=== PATIENT | female | born 1960 | race Two or more races ===

== ENCOUNTER 2016-10-12 12:27 | Emergency (ER) | payer OTHER ==
[2016-10-12 12:40] VITALS: TEMP 97.5
[2016-10-12 13:08] LABS: % IMMATURE GRANULYOCYTES 0.1 % (0.0-1.1); ABSOLUTE IMMATURE GRANULOCYTES 0.01 10^3/uL (0.00-0.10); ADD DIFF? NO; ADD MORPH? NO; ADD SCAN? NO; ATYPICAL LYMPHOCYTE FLAG 10 (0-99); FRAGMENT RBC FLAG 0 (0-99); HEMATOCRIT 42.3 % (38.0-47.0); HEMOGLOBIN 14.5 g/dL (12.6-16.3); LEFT SHIFT FLG 0 (0-99); LIPEMIA HEMOLYSIS FLAG 90 (0-99); MEAN CELL HEMOGLOBIN 31.7 pg (27.9-34.1); MEAN CELL HEMOGLOBIN CONCENTR. 34.3 g/dL (32.4-36.7); MEAN CELL VOLUME 92.6 fL (81.5-99.8); MEAN PLATELET VOLUME 10.1 fL (8.7-11.7); PLATELET CLUMPS FLAG 0 (0-99); PLATELET COUNT 220 10^3/uL (150-400); RED BLOOD CELL COUNT 4.57 10^6/uL (4.18-5.33); RED CELL DISTRIBUTION WIDTH 11.8 % (11.5-15.2)
--- NOTE | 2016-10-12 13:13 | CPEKG ---
Heart Rate: 67 RR Interval: 896 P-R Interval: 152 QRSD Interval: 76 QT Interval: 440 QTC Interval: 465 P [place]: 53 QRS [place]: 58 T Wave [place]: 54 EKG Severity - NORMAL ECG - EKG Impression: SINUS RHYTHM Electronically Signed By: Sachin Day 13-Oct-2016 09:12:18
[2016-10-12 13:21] LABS: ALANINE AMINOTRANSFERASE 32 IU/L (9-52); ALBUMIN 4.4 g/dL (3.5-5.0); ALKALINE PHOSPHATASE 98 IU/L (38-126); ANION GAP 15 mEq/L (8-16); ASPARTATE AMINOTRANSFERASE 28 IU/L (14-46); BILIRUBIN,TOTAL 1.3 mg/dL (0.1-1.4); CALCIUM 9.3 mg/dL (8.5-10.4); CARBON DIOXIDE 24 mEq/l (22-31); CHLORIDE 104 mEq/L (97-110); CREATININE 0.7 mg/dL (0.6-1.0); GLOMERULAR FILTRATION RATE > 60; GLUCOSE 81 mg/dL (70-100); POTASSIUM 3.4 mEq/L (3.5-5.2); SODIUM 143 mEq/L (134-144); TOTAL PROTEIN 7.1 g/dL (6.3-8.2)
[2016-10-12 14:06] VITALS: BP 98/62; PULSE 73; RESP 24; O2SAT 95
--- NOTE | 2016-10-12 14:11 | EDPHY ---
HPI/HX/ROS/PE/MDM Narrative: Chief complaint: Hypoglycemia HPI: 56-year-old woman with a history of rheumatic disease, on Humira, last dose was 3 days ago, she is on it every 2 weeks. She has has episodes of hypoglycemia for the 3-4 days after she is dosed. Today she had an episode of hypoglycemia and became unresponsive. She states she thinks this happened because she was not on top of checking her sugars this morning. For the last several doses she has noted that her blood sugars go low after the Humira. Her android software engineer believes this is secondary to decreasing insulin resistance on receptor cells. 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 Normally she monitors these very closely but today was in hurry. She states her blood sugar drops precipitously rapidly. Normally she takes all clots 15 g of glucose in retirement form which prevents lows but this was not available today. Did not fall. Did not hit her head. Now complaining some mild nausea which has since resolved. No other recent illness. No fevers or chills. Is not and any other hyperglycemic agents. ROS: 10 point Review of Systems is negative except as noted in the HPI. Physical exam: Gen: Awake, Alert, No Distress HEENT: Nose: no rhinorrhea Eyes: PERRLA, EOMI Mouth: Moist mucosa Neck: Supple, no JVD Chest: nontender, lungs clear to auscultation Heart: S1, S2 normal, no murmur Abd: Soft, non-tender, no guarding Back: no CVA tenderness, no midline tenderness Ext: no edema, non-tender Skin: no rash Neuro: CN II-XII intact, Sensation grossly intact, Strength 5/5 in bilateral upper and lower extremities ED Course: 56-year-old woman with episodes of hypoglycemia at secondary to her Humira infusions. She is very well educated diabetes is actually a inclusion special educator is knows how to treat these. She is not have a good sense of when she is going to go low and she dropped precipitously fast. Normally she is able to treat these with unfortunately she was unable to do so today. Given her precipitous drop in her blood sugar I feel glucagon kit would be appropriate for her in the event that she becomes unresponsive secondary to hypoglycemia again. She is very well very well educated regarding hyperglycemic management and otherwise will continue to monitor her sugars closely. She has gotten better home. She will continue eat complex carbohydrates and car blood. She will return for any concerns. Otherwise follow up with her android software engineer. - Data Points Laboratory Results: Laboratory Results 10/12/16 12:41 10/12/16 12:41 10/12/16 10/12/16 12:41 12:36 WBC 9.12 10^3/uL (3.80-9.50) RBC 4.57 10^6/uL (4.18-5.33) Hgb 14.5 g/dL (12.6-16.3) POC Hgb 13.6 gm/dL (12.3-15.9) Hct 42.3 % (38.0-47.0) POC Hct 40 % (35.5-47.5) MCV 92.6 fL (81.5-99.8) MCH 31.7 pg (27.9-34.1) MCHC 34.3 g/dL (32.4-36.7) RDW 11.8 % (11.5-15.2) Plt Count 220 10^3/uL (150-400) MPV 10.1 fL (8.7-11.7) Neut % (Auto) 53.5 % (39.3-74.2) Lymph % (Auto) 37.4 % (15.0-45.0) [place] % (Auto) 5.8 % (4.5-13.0) Eos % (Auto) 2.7 % (0.6-7.6) Baso % (Auto) 0.5 % (0.3-1.7) Nucleat RBC Rel Count 0.0 % (0.0-0.2) Absolute Neuts (auto) 4.87 10^3/uL (1.70-6.50) Absolute Lymphs (auto) 3.41 H 10^3/uL (1.00-3.00) Absolute Monos (auto) 0.53 10^3/uL (0.30-0.80) Absolute Eos (auto) 0.25 10^3/uL (0.03-0.40) Absolute Basos (auto) 0.05 10^3/uL (0.02-0.10) Absolute Nucleated RBC 0.00 10^3/uL (0-0.01) Immature Gran % 0.1 % (0.0-1.1) Immature Gran # 0.01 10^3/uL (0.00-0.10) POC Sodium 145 H mEq/L (134-144) Sodium 143 mEq/L (134-144) POC Potassium 3.0 L mEq/L (3.3-5.0) Potassium 3.4 L mEq/L (3.5-5.2) POC Chloride 107 mEq/L (96-108) Chloride 104 mEq/L (97-110) Carbon Dioxide 24 mEq/l (22-31) Anion Gap 15 mEq/L (8-16) POC BUN 11 mg/dL (7-23) BUN 13 mg/dL (7-23) Creatinine 0.7 mg/dL (0.6-1.0) POC Creatinine 0.5 L mg/dL (0.6-1.2) Estimated GFR > 60 Glucose 81 mg/dL (70-100) POC Glucose 85 mg/dL (70-100) Calcium 9.3 mg/dL (8.5-10.4) Total Bilirubin 1.3 mg/dL (0.1-1.4) AST 28 IU/L (14-46) ALT 32 IU/L (9-52) Alkaline Phosphatase 98 IU/L (38-126) Total Protein 7.1 g/dL (6.3-8.2) Albumin 4.4 g/dL (3.5-5.0) Point of Care Test Results: 10/12/16 12:36 POC Sodium 145 H POC Potassium 3.0 L POC Chloride 107 POC BUN 11 POC Creatinine 0.5 L POC Glucose 85 General Time Seen by Provider: 10/12/16 13:15 Initial Vital Signs: Initial Vital Signs Temperature (C) 36.4 C 10/12/16 12:36 Heart Rate 107 H 10/12/16 12:36 Respiratory Rate 18 10/12/16 12:36 Blood Pressure 106/76 10/12/16 12:36 O2 Sat (%) 96 10/12/16 12:36 O2 Delivery Mode Room Air Allergies/Adverse Reactions: codeine [Codeine] Allergy (Mild, Verified 12/07/09 07:59) hydromorphone HCl [From Dilaudid] Allergy (Mild, Verified 12/07/09 07:59) morphine [Morphine] Allergy (Mild, Verified 12/07/09 07:59) sulfamethoxazole [From Septra] Allergy (Mild, Verified 12/07/09 07:59) trimethoprim [From Septra] Allergy (Mild, Verified 12/07/09 07:59) Sulfa (Sulfonamide Antibiotics) Allergy (Verified 10/12/16 12:33) tetracycline Allergy (Verified 10/12/16 12:33) Home Medications: Medication Instructions Recorded Albuterol Sulfate 12/07/09 Levothyroxine 12/07/09 Ondansetron Odt [Zofran Odt] 4 mg SL Q4PRN PRN #4 tab 12/07/09 PROzac 12/07/09 Seravent 12/07/09 Ondansetron Odt [Zofran Odt] 1 - 2 tab PO Q6-8PRN PRN #6 tab 02/20/11 Albuterol 10/12/16 FLUoxetine 10/12/16 Glucagon,Human Recombinant 1 mg IJ ONCE PRN #1 kit 10/12/16 [Glucagon Emergency Kit] Humira 10/12/16 LYRICA 10/12/16 VITAMIN D 10/12/16 Departure - Departure Disposition: Home, Routine, Self-Care Clinical Impression: Hypoglycemia Condition: Good Instructions: Non-diabetic Hypoglycemia (ED) Additional Instructions: Follow up with the android software engineer in 1-2 days for re-evaluation. Continue to monitor blood sugars ingests adequate carbohydrates for the next several days. Even provided glucagon kit as needed for further hypoglycemic events. Discussed with your doctor about educating friends and family on its use. Referrals: XIAO RUBY [Primary Care Provider] - As per Instructions Prescriptions: Glucagon,Human Recombinant [Glucagon Emergency Kit] 1 mg IJ ONCE PRN #1 kit PRN Reason: Altered mental status
== END 2016-10-12 14:39 | disposition home or self-care (01) ==
LOC: EDUNIT#
DX: E16.2 Hypoglycemia, unspecified (principal)
CPT/HCPCS: 82947-QW

== ENCOUNTER → 2017-09-09 | Outpatient (CLI) | payer OTHER | LOC: BRMIMAGING 14:30 | PROVIDERS: ATTEND Internal Medicine Rheumatology | DX: Z13.820 Encounter for screening for osteoporosis (principal); M85.89 Other specified disorders of bone density and structure, multiple sites; Z82.62 Family history of osteoporosis; Z91.81 History of falling ==

== ENCOUNTER 2017-10-23 05:09 | Emergency (ER) | payer BC, OTHER ==
[2017-10-23] MEDS ORDERED: TDAP ADULT 0.5 ML INJ (BOOSTRIX) IM ONE (05:19)
[2017-10-23 05:25] VITALS: BP 104/71; PULSE 71; RESP 16; TEMP 98.1; O2SAT 99
--- NOTE | 2017-10-23 05:39 | EDPHY ---
H & P Time Seen by Provider: 10/23/17 05:15 HPI/ROS: Chief complaint: Laceration to left eyebrow HPI: 57-year-old female with psoriatic arthritis. She is bending over to take care of her cat. As she came up it as it was dark she missed the fact that the edge of the door was in the way and she but her head on the eyebrow on the left against the door edge. In so doing she was coming up quite quickly and sustained a laceration. She notes that there was lot of blood coming down the face and even of the nostril however, there was no actual direct blunt injury to the nose itself This happened at home, occurring just [employer] Reports there is no numbness or loss of sensation. 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 There is no neck pain. She did not experience any marked axial loading or hyperextension of the neck. She has no numbness or tingling paresthesias. There is no loss of consciousness. Full recall for the event. No nausea vomiting Physical Exam: Gen: Well-developed. Well-nourished. No odor of alcohol. Nontoxic. Afebrile. Extremity: There is a 1.5 cm, jagged laceration that is full thickness to the left forehead extending into the eyebrow. Mild soft tissue swelling and tenderness but no bony tenderness of the orbit. Function: Sensation over the forehead is intact NV Status: Intact Pupils equal round reactive to light. No visual field defect. No diplopia. Full range of motion Constitutional: Initial Vital Signs Temperature (C) 36.7 C 10/23/17 05:10 Heart Rate 71 10/23/17 05:10 Respiratory Rate 16 10/23/17 05:10 Blood Pressure 104/71 10/23/17 05:10 O2 Sat (%) 99 10/23/17 05:10 O2 Delivery Mode Room Air Allergies/Adverse Reactions: codeine [Codeine] Allergy (Mild, Verified 10/23/17 05:16) hydromorphone HCl [From Dilaudid] Allergy (Mild, Verified 10/23/17 05:16) morphine [Morphine] Allergy (Mild, Verified 10/23/17 05:16) sulfamethoxazole [From Septra] Allergy (Mild, Verified 10/23/17 05:16) trimethoprim [From Septra] Allergy (Mild, Verified 10/23/17 05:16) furosemide [From Lasix] Allergy (Verified 10/23/17 05:16) Sulfa (Sulfonamide Antibiotics) Allergy (Verified 10/23/17 05:16) tetracycline Allergy (Verified 10/23/17 05:16) Home Medications: Medication Instructions Recorded Levothyroxine 12/07/09 PROzac 12/07/09 Albuterol 10/12/16 FLUoxetine 10/12/16 LYRICA 10/12/16 VITAMIN D 10/12/16 Cosentyx Syringe 10/23/17 Medical Decision Making Procedures: Procedure: Laceration repair. Laceration Repair: Options presented to patient, consented to repair. After skin prep with chloraseptic the wound was anesthesized with supraorbital nerve block with lidocaine 1 % without epinephrine the wound was Cleansed with irrigation by Tech The length of the wound was 1.5 cm. Inspection and exploration of the wound, with gloved finger and forceps ,prior to closure revealed no evidence of foreign body and no involvement of deeper structures. Closure was obtained using a double layer closure with 1st 5 0 Vicryl subcuticular stitches x2, followed by a 6 0 Prolene skin sutures, running as well as a single 5 0 Vicryl interrupted. At the end of the procedure, wound edges were well approximated and hemostasis was achieved. Patient tolerated procedure well. ED Course/Re-evaluation: Less repair advise and she consented. Given a Tdap Differential Diagnosis: Diagnostic considerations include, but are not limited to, the following: Laceration, retained FB, fracture. - Data Points Medications Given: Discontinued Medications Diphtheria/Tetanus/Acell Pertussis (Boostrix) 0.5 ml IM .ONCE ONE Stop: 10/23/17 05:20 Last Admin: 10/23/17 05:41 Dose: 0.5 ml Departure - Departure Disposition: Home, Routine, Self-Care Clinical Impression: Facial laceration Qualifiers: Encounter type: initial encounter Qualified Code(s): S01.81XA - Laceration without foreign body of other part of head, initial encounter Condition: Good Instructions: Facial Laceration (ED) Additional Instructions: Tylenol or Advil for the pain Clean 2-3 times daily with hydrogen peroxide. Apply bacitracin. Then a Band- Aid. Keep out of the sun for 3 months Sutures out in 5 days Expect the anesthetic to flow into the upper eyelid by gravity and become swollen in an hour or 2, for the next 2 days. Referrals: Patient,NotPresent [Primary Care Provider] - As per Instructions
== END 2017-10-23 06:05 | disposition home or self-care (01) ==
LOC: CED 05:09
PROC: 0HQ1XZZ Repair Face Skin, External Approach (ICD-10-PCS; principal; 2017-10-23)
DX: S01.112A Laceration without foreign body of left eyelid and periocular area, initial encounter (principal); Z23 Encounter for immunization; W22.8XXA Striking against or struck by other objects, initial encounter